=== PATIENT | male | born 1990 | race American Indian/Alaskan Native ===

== ENCOUNTER 2019-01-23 10:27 | Emergency (ER) | payer SELFPAY ==
[2019-01-23 10:34] VITALS: BP 142/54
--- NOTE | 2019-01-23 11:06 | Emergency Department Report ---
ED ENT HPI - General Chief complaint: Weakness Stated complaint: TOOTHACHE/FEVER/FATIQUE Time Seen by Provider: 01/23/19 11:00 Source: patient Mode of arrival: Ambulatory Limitations: No Limitations - History of Present Illness Initial comments: This is a 28-year-old -[place] female presents to the emergency room with dental pain for a few months. He reports headache and dental pain on the left lower side for several months. Patient states his wisdom tooth and molar on the left lower side a few months back. Patient states pain initially was intermittent but over the past few days has increased in intensity causing headache and left-sided facial pain. She denies difficulty swallowing or chewing, drooling, hoarseness. MD complaint: tooth pain Onset/Timin -: month(s) Location: tooth # (17 and 18) 1 - Dental pain and avulsion. Severity: severe Severity scale (0 -10): 10 Quality: constant, other (throbbing) Consistency: constant Improves with: none Worsens with: eating, other (air) Context- Dental: history of dental caries, poor dental care Associated Symptoms: toothache. denies: pain with swallowing, sore throat, tinnitus, hearing loss, discharge from ear - Related Data Previous Rx's Medication Instructions Recorded Last Taken Type Clindamycin [Clindamycin CAP] 300 mg PO Q8H #21 cap 01/23/19 Unknown Rx Naproxen [Naprosyn] 500 mg PO TID PRN #20 tablet 01/23/19 Unknown Rx traMADol [Ultram 50 MG tab] 50 mg PO Q6HR PRN #12 tablet 01/23/19 Unknown Rx Allergies Allergy/AdvReac Type Severity Reaction Status Date / Time No Known Allergies Allergy Unverified 01/23/19 10:30 ED Dental HPI - General Chief complaint: Weakness Stated complaint: TOOTHACHE/FEVER/FATIQUE Time Seen by Provider: 01/23/19 11:00 Source: patient Mode of arrival: Ambulatory Limitations: No Limitations - Related Data Previous Rx's Medication Instructions Recorded Last Taken Type Clindamycin [Clindamycin CAP] 300 mg PO Q8H #21 cap 01/23/19 Unknown Rx Naproxen [Naprosyn] 500 mg PO TID PRN #20 tablet 01/23/19 Unknown Rx traMADol [Ultram 50 MG tab] 50 mg PO Q6HR PRN #12 tablet 01/23/19 Unknown Rx Allergies Allergy/AdvReac Type Severity Reaction Status Date / Time No Known Allergies Allergy Unverified 01/23/19 10:30 ED Review of Systems ROS: Stated complaint: TOOTHACHE/FEVER/FATIQUE Other details as noted in HPI Constitutional: denies: chills, fever ENT: dental pain. denies: ear pain, throat pain Respiratory: denies: cough, shortness of breath, wheezing Cardiovascular: denies: chest pain, palpitations Gastrointestinal: denies: abdominal pain, nausea, diarrhea Neurological: headache. denies: weakness, paresthesias Psychiatric: denies: anxiety, depression ED Past Medical Hx - Past Medical History Previous Medical History?: No - Surgical History Past Surgical History?: Yes Hx Appendectomy: Yes - Social History Smoking Status: Current Every Day Smoker Substance Use Type: Alcohol - Medications Home Medications: Home Medications Medication Instructions Recorded Confirmed Last Taken Type Clindamycin [Clindamycin CAP] 300 mg PO Q8H #21 cap 01/23/19 Unknown Rx Naproxen [Naprosyn] 500 mg PO TID PRN #20 tablet 01/23/19 Unknown Rx traMADol [Ultram 50 MG tab] 50 mg PO Q6HR PRN #12 tablet 01/23/19 Unknown Rx ED Physical Exam - General Limitations: No Limitations General appearance: alert, in no apparent distress - ENT ENT exam: Present: normal orophraynx (uvula midline), mucous membranes moist, TM's normal bilaterally, normal external ear exam, other (#17 dark brown dental caries to center tooth, tenderness. #18 partial avulsion to the lateral side of tooth, tenderness, mucosal swelling, no palpable cyst pockets.) - Neck Neck exam: Present: normal inspection - Respiratory Respiratory exam: Present: normal lung sounds bilaterally. Absent: respiratory distress - Cardiovascular Cardiovascular Exam: Present: regular rate, normal rhythm. Absent: systolic murmur, diastolic murmur, rubs, gallop - Neurological Exam Neurological exam: Present: alert, oriented X3 - Psychiatric Psychiatric exam: Present: normal affect, normal mood - Skin Skin exam: Present: warm, dry, intact, normal color. Absent: rash ED Course Vital Signs 01/23/19 10:30 Temperature 98 F Pulse Rate 65 Respiratory 18 Rate Blood Pressure 142/54 O2 Sat by Pulse 98 Oximetry ED Medical Decision Making - Medical Decision Making This is a 28-year-old male that presents with tooth toothache and a left-sided facial pain for several months. Patient is stable and was examined by me. Given norco once in ER. Susceptible of dental caries #17 and tooth avulsion #18. Start tramadol, naproxen, and clindamycin. Given referrals to emergency dental clinics. Discussed plan with patient. He agreed with ER plan. Discharged home in stable condition. Critical care attestation.: If time is entered above; I have spent that time in minutes in the direct care of this critically ill patient, excluding procedure time. ED Disposition Clinical Impression: Dental caries, Toothache Fracture, avulsion, tooth Qualifiers: Encounter type: initial encounter Fracture type: closed Qualified Code(s): S02.5XXA - Fracture of tooth (traumatic), initial encounter for closed fracture Disposition: TO HOME OR SELFCARE Is pt being admited?: No Does the pt Need Aspirin: No Condition: Stable Instructions: Toothache (ED), Dental Caries (ED) Additional Instructions: Complete all days of clindamycin as prescribed for 7 days. Take pain medication every 6-8 hours as prescribed. Follow up with Dentist from referrals below. Prescriptions: Clindamycin [Clindamycin CAP] 300 mg PO Q8H #21 cap Naproxen [Naprosyn] 500 mg PO TID PRN #20 tablet PRN Reason: Pain, Moderate (4-6) traMADol [Ultram 50 MG tab] 50 mg PO Q6HR PRN #12 tablet PRN Reason: Pain Referrals: [facility] [Outside] - 3-5 Days [facility] [Outside] - 3-5 Days [facility] [Outside] - 3-5 Days Time of Disposition: 11:10
[2019-01-23] MEDS ORDERED: NORCO 7.5/325 PO ONE (11:11)
== END 2019-01-23 11:36 | disposition home or self-care (01) ==
LOC: ED 10:27
DX: S02.5XXA Fracture of tooth (traumatic), initial encounter for closed fracture (principal); K02.9 Dental caries, unspecified; F17.200 Nicotine dependence, unspecified, uncomplicated; Z90.49 Acquired absence of other specified parts of digestive tract; X58.XXXA Exposure to other specified factors, initial encounter; Y93.89 Activity, other specified; Y92.89 Other specified places as the place of occurrence of the external cause; Y99.8 Other external cause status
CPT/HCPCS: 99282

== ENCOUNTER 2019-01-29 22:28 | Emergency (ER) | payer SELFPAY ==
[2019-01-29 22:35] VITALS: BP 110/64
--- NOTE | 2019-02-10 08:15 | Emergency Department Report ---
Blank Doc - Documentation Documentation: Patient left without being seen This note has been generated by me, Dr. Sammy Lundberg III, MD, the Education Technician for the emergency department. I have not seen this patient personally.
== END 2019-01-30 00:28 | disposition left against medical advice (07) ==
LOC: ED 22:28
DX: R36.9 Urethral discharge, unspecified (principal); Z53.21 Procedure and treatment not carried out due to patient leaving prior to being seen by health care provider